=== PATIENT | female | born 1935 ===

== ENCOUNTER → 2019-04-14 | Outpatient (CLI) | payer OTHER ==
[~2019-04-14] MED LIST: CALCIUM600 MG; CILOSTAZOL100 MG; ECOTRIN81 MG; FORTAMET500 MG; GABAPENTIN300 MG; VASOTEC20 M1; ZOCOR20 MG
== END | disposition home or self-care (01) ==
LOC: NUCLEAR 09:00
DX: M15.0 Primary generalized (osteo)arthritis (principal); M81.0 Age-related osteoporosis without current pathological fracture
CPT/HCPCS: 77080; 78306; A9503

== ENCOUNTER 2019-10-05 15:24 | Emergency (ER) | payer OTHER ==
[~2019-10-05] VITALS: Ht 152.4 cm; Wt 63.5 kg
== END 2019-10-05 21:54 | disposition home or self-care (01) ==
LOC: ER 15:24
DX: K52.89 Other specified noninfective gastroenteritis and colitis (principal)